=== PATIENT | male | born 1985 | race Caucasian/White ===

== ENCOUNTER 2023-01-04 08:00 | Outpatient (CLI) | payer OTHER ==
[2023-01-04 17:39] LABS: BASOPHILS # (AUTO) 0.1 10^3/uL (0.0-0.1); EOSINOPHILS # (AUTO) 0.1 10^3/uL (0.0-0.7); EOSINOPHILS % (AUTO) 1.6 %; HCT - HEMATOCRIT 44.2 % (42.0-52.0); HGB - HEMOGLOBIN 14.5 g/dL (14.0-18.0); LYMPHOCYTES # (AUTO) 2.6 10^3/uL (1.5-3.5); LYMPHOCYTES % (AUTO) 35.3 %; MEAN CORPUSCULAR HEMOGLOBIN 28.3 pg (27.0-31.0); MEAN CORPUSCULAR HGB CONC 32.8 g/dL (32.0-36.0); MEAN CORPUSCULAR VOLUME 86.2 fL (80.0-94.0); MEAN PLATELET VOLUME 10.3 fL (7.4-11.4); MONOCYTES # (AUTO) 0.5 10^3/uL (0.0-1.0); MONOCYTES % (AUTO) 7.1 %; NEUTROPHILS % (AUTO) 54.7 %; PLT - PLATELET COUNT 338 10^3/uL (130-450); RED BLOOD COUNT 5.13 10^6/uL (4.70-6.10); RED CELL DISTRIBUTION WIDTH 12.3 % (12.0-15.0); WHITE BLOOD COUNT 7.3 x10^3/uL (4.8-10.8)
[2023-01-04 17:54] LABS: ALBUMIN 4.4 g/dL (3.2-5.5); ALBUMIN/GLOBULIN RATIO 1.4 (1.0-2.2); ALKALINE PHOSPHATASE 50 IU/L (42-121); ALT ALANINE AMINOTRANSFERASE 40 IU/L (10-60); AST ASPARTATE AMINOTRANSFERASE 21 IU/L (10-42); BILIRUBIN,TOTAL 0.6 mg/dL (0.2-1.0); BUN - BLOOD UREA NITROGEN 14 mg/dL (6-20); CALCIUM 9.6 mg/dL (8.5-10.3); CARBON DIOXIDE - CO2 27 mmol/L (21-32); CHLORIDE 105 mmol/L (101-111); CREATININE 0.7 mg/dL (0.6-1.2); GFR - MDRD 128 (>89); GLUCOSE 94 mg/dL (70-100); POTASSIUM 4.5 mmol/L (3.5-5.0); SODIUM 139 mmol/L (135-145); TOTAL PROTEIN 7.6 g/dL (6.7-8.2)
[2023-01-04 17:57] LABS: CRP - C-REACTIVE PROTEIN < 1.0 mg/dL (0-1.0)
[2023-01-05 17:08] LABS: ANTI-DNA (DS) AB QN 1 IU/mL (0-9); CENTROMERE B ANTIBODIES <0.2 AI (0.0-0.9); CHROMATIN ANTIBODIES <0.2 AI (0.0-0.9); JO-1 AB <0.2 AI (0.0-0.9); RIBOSOMAL P ANTIBODIES <0.2 AI (0.0-0.9); RNP ANTIBODIES <0.2 AI (0.0-0.9); SCLERODERMA-70 ANTIBODIES <0.2 AI (0.0-0.9); SJOGREN'S ANTI-SS-A <0.2 AI (0.0-0.9); SJOGREN'S ANTI-SS-B <0.2 AI (0.0-0.9); SMITH ANTIBODIES <0.2 AI (0.0-0.9); SMITH/RNP ANTIBODIES <0.2 AI (0.0-0.9)
[2023-01-06 15:09] LABS: A/G RATIO 1.4 (0.7-1.7); ALBUMIN 3.9 g/dL (2.9-4.4); ALPHA-1-GLOBULIN 0.1 g/dL (0.0-0.4); ALPHA-2-GLOBULIN 0.5 g/dL (0.4-1.0); GAMMA GLOBULIN 1.1 g/dL (0.4-1.8); GLOBULIN, TOTAL 2.7 g/dL (2.2-3.9); PROTEIN TOTAL 6.6 g/dL (6.0-8.5)
== END 2023-01-04 23:59 | disposition home or self-care (01) ==
LOC: LAB.N 08:00
PROVIDERS: ATTEND Physician Assistant Medical
DX: R63.4 Abnormal weight loss (principal)
CPT/HCPCS: 36415; 80053; 83516; 84155; 84165; 85025; 86140; 86225; 86235

== ENCOUNTER 2023-01-04 12:06 | Outpatient (CLI) | payer OTHER ==
--- NOTE | 2023-01-04 15:00 | XRAY Report ---
PROCEDURE: Chest 2 View X-Ray INDICATIONS: UNINTENTIONAL WEIGHT LOSS TECHNIQUE: 2 views of the chest were acquired. COMPARISON: None. FINDINGS: Surgical changes and devices: None. Lungs and pleura: No pleural effusions or pneumothorax. Lungs are clear. Mediastinum: Mediastinal contours appear normal. Heart size is normal. Bones and chest wall: No suspicious bony lesions. Overlying soft tissues appear unremarkable. IMPRESSION: No acute cardiopulmonary process. Further imaging (such as contrast-enhanced chest abdomen pelvis CT) may be warranted given symptoms. Reviewed by: Leonardo Mooney on 01/04/2023 2:58 PM PDT Approved by: Leonardo Mooney on 01/04/2023 2:58 PM PDT Station ID: [id number]
== END 2023-01-04 23:59 | disposition home or self-care (01) ==
LOC: DI.N 12:06
PROVIDERS: ATTEND Physician Assistant Medical
DX: R63.4 Abnormal weight loss (principal)

== ENCOUNTER 2023-01-21 08:00 | Outpatient (CLI) | payer OTHER | END 2023-01-21 23:59 | disposition home or self-care (01) | LOC: LAB.N 08:00 | PROVIDERS: ATTEND Physician Assistant | DX: R10.9 Unspecified abdominal pain (principal) | CPT/HCPCS: 83993 ==

== ENCOUNTER 2023-01-21 09:41 | Outpatient (CLI) | payer OTHER ==
--- NOTE | 2023-01-21 15:15 | XRAY Report ---
PROCEDURE: Foot 3 View BILAT INDICATIONS: HEEL PAIN TECHNIQUE: 3 views of the foot were acquired. COMPARISON: None. FINDINGS: Bones: No fractures or dislocations. No suspicious bony lesions. Bilateral calcaneal spurs are pr esent. Soft tissues: No suspicious soft tissue calcifications or masses. IMPRESSION: Bilateral calcaneal spur. Reviewed by: Diamond Mendoza MD on 01/21/2023 3:14 PM PDT Approved by: Diamond Mendoza MD on 01/21/2023 3:14 PM PDT Station ID: [id number]
== END 2023-01-21 09:42 | disposition home or self-care (01) ==
LOC: DI.N 09:41
PROVIDERS: ATTEND Physician Assistant
DX: M77.32 Calcaneal spur, left foot (principal); M77.31 Calcaneal spur, right foot; R10.9 Unspecified abdominal pain
CPT/HCPCS: 83993

== ENCOUNTER 2023-11-08 07:52 | Day surgery (SDC) | payer OTHER ==
[2023-11-08] MEDS: LACTATED RINGERS 1,000 ML IV ONE ×3 (08:09→09:50)
--- NOTE | 2023-11-08 08:29 | ANESTHESIA ---
Pre-Anesthesia VS, & Labs - Diagnosis desires sterilization - Procedure vasectomy Vital Signs: Temp Pulse Resp BP Pulse Ox O2 Flow Rate 36.0 C L 67 18 124/73 98 11/08/23 08:09 11/08/23 08:09 11/08/23 08:09 11/08/23 08:09 11/08/23 08:09 Height: 5 ft 10 in Weight (kg): 87 kg Body Mass Index: 27.5 BMI Classification: Overweight - NPO >8 hours Home Medications and Allergies Home Medications: Ambulatory Orders Ascorbic Acid [Vitamin C] 1,000 mg PO DAILY 10/29/23 Meloxicam 7.5 mg PO DAILY 10/29/23 Tizanidine HCl [Zanaflex] 2 mg PO BID PRN 10/29/23 Ascorbic Acid [Vitamin C] 1,000 mg PO DAILY 10/29/23 Meloxicam 7.5 mg PO DAILY 10/29/23 Tizanidine HCl [Zanaflex] 2 mg PO BID PRN 10/29/23 Allergies/Adverse Reactions: Allergies Allergy/AdvReac Type Severity Reaction Status Date / Time gabapentin Allergy neck Verified 10/29/23 14:54 swelling hydrocodone [From Vicodin] AdvReac agitation Verified 10/29/23 14:54 Anes History & Medical History - Anesthetic History Anesthesia Complications: reports: No previous complications - Medical History Cardiovascular: reports: None Pulmonary: reports: None Gastrointestinal: reports: Chronic diarrhea Urinary: reports: None Musculoskeletal: reports: Chronic back pain Endocrine/Autoimmune: reports: None Skin: reports: None Smoking Status: Never smoker Psychosocial: reports: Cannabis (daily inhaled) History of Cancer?: No Exam General: Alert, Oriented x3 Dental: WNL, Poor dentition (uppers) Mouth Opening: Greater than 4 Fingerbreadths Neck Mobility: Normal Mallampati classification: II Thyromental Distance: greater than 6 cm Respiratory: Lungs clear Cardiovascular: Regular rate Plan Anesthesia Type: General Consent for Procedure(s) Verified and Reviewed: Yes Code Status: Attempt Resuscitation ASA classification: 2-Mild systemic disease Is this case an emergency?: No
[2023-11-08] MEDS: LIDOCAINE 1% 50 ML MDV SUBQ ONE (09:02)
--- NOTE | 2023-11-08 09:52 | Discharge Plan ---
Discharge Plan Problem Reviewed?: Yes Disposition: 01 Home, Self Care Diet: Regular Activity Restrictions: Additional Comments (as instructed) Shower Restrictions: No Driving Restrictions: No Instruction Topics: Vasectomy No Scalpel No Smoking: If you smoke, Please STOP! Call for help.
--- NOTE | 2023-11-08 09:58 | OPERATIVE REPORT ---
Operative Report - General Procedure Date: 11/08/23 Planned Procedure: Bilateral Vasectomy Pre-Op Diagnosis: elective sterilization Procedure Performed: Bilateral Vasectomy Post Op Diagnosis: elective sterilization - Procedure Note Primary Surgeon: Issa Anesthesia Provider: MICHELLE Franco Anesthesia Technique: General LMA Pathology: none Estimated Blood Loss (mL): 0 Findings: Normal vasectomy Complications: none - Other Other Information/Narrative: After informed consent was obtained the patient was brought to the OR and laid in the supine position. The patient was anesthetized per anesthesia protocols and prepped draped in usual sterile fashion. A formal timeout was performed reconfirming the patient procedure and laterality. Attention was paid to his right hemiscrotum where his vas deferens was identified 1% lidocaine was used as local and instilled into the skin. Using a no scalpel technique we dissected the skin away using a sharp mosquito. The vas sheath was grasped using a ring clamp and the sheath was then incised exposing the vas itself which was pulled out and clamped on both sides and cauterized away in the middle. The ends were suture-ligated using 3-0 chromic suture. The distal end was dropped back in and a fascial interposition stitch was placed. There was no bleeding. The skin was closed using 3-0 chromic suture. An identical procedure was performed on the left side. Again hemostasis was excellent. Band-Aids were placed. This concluded the procedure. Patient tolerated the procedure well and was brought to the PACU without further incident. He will have a semen analysis in 3 months
[2023-11-08] MEDS ORDERED: ATROPINE ABBOJECT 1 MG/10 ML SYRINGE IVP PRN (10:10)
[2023-11-08] MEDS ORDERED: MORPHINE 2 MG/ML CARPUJECT IVP PRN (10:10)
[2023-11-08] MEDS ORDERED: METOCLOPRAMIDE 10 MG/2 ML VIAL IVP PRN (10:10)
[2023-11-08] MEDS ORDERED: ONDANSETRON 4 MG/2 ML VIAL IVP PRN (10:10)
[2023-11-08] MEDS ORDERED: fentaNYL 100 MCG/2 ML VIAL IVP PRN (10:10)
[2023-11-08] MEDS ORDERED: ePHEDrine 50 MG/ML VIAL IVP PRN (10:10)
[2023-11-08] MEDS ORDERED: NALOXONE 0.4 MG/ML VIAL IVP PRN (10:10)
[2023-11-08] MEDS ORDERED: HYDROmorphone 0.5 MG/0.5 ML SYRINGE IVP PRN (10:10)
[2023-11-08 10:45] VITALS: BP 124/70; O2SAT 98
[2023-11-08] MEDS ORDERED: LACTATED RINGERS 1,000 ML IV SCH (11:00)
--- NOTE | 2023-11-08 12:10 | ANESTHESIA POST OP EVALUATION ---
Anesthesia Post Eval - Post Anesthesia Eval Vitals: Last Vital Signs Temp 36.4 C L 11/08/23 10:15 Pulse 64 11/08/23 10:40 Resp 16 11/08/23 10:40 BP 124/70 11/08/23 10:40 Pulse Ox 98 11/08/23 10:40 O2 Flow Rate CV Function Including HR & BP: Stable Pain Control: Satisfactory Nausea & Vomiting: Negative Mental Status: Baseline Respiratory Status: Airway Patent Hydration Status: Satisfactory Anesthesia Complications: None
== END 2023-11-08 07:53 | disposition home or self-care (01) ==
LOC: OR 07:52
PROVIDERS: ATTEND Urology
DX: Z30.2 Encounter for sterilization (principal)